=== PATIENT | male | born 1990 | race African-American/Black ===

== ENCOUNTER 2020-12-09 13:48 | Emergency (ER) | payer MEDICAID ==
[~2020-12-09] VITALS: Ht 182.9 cm; Wt 82.0 kg
[2020-12-09 14:05] VITALS: BP 128/83
[2020-12-09] MEDS ORDERED: TETANUS, DIPHTHERIA, PERTUSSIS VAC/PF 0.5ML (>10YR OLD) IM ONE (15:30)
[2020-12-09] MEDS ORDERED: ACETAMINOPHEN 325MG TABLET PO ONE (15:30)
[2020-12-09] MEDS ORDERED: IBUPROFEN 600MG TABLET PO ONE (15:30)
[2020-12-09] MEDS ORDERED: TOPUD MT (16:26)
[2020-12-09] MEDS ORDERED: AMOX-424 MT (16:26)
[2020-12-09] MEDS ORDERED: NAPR-1176 MT (16:26)
[2020-12-09] MEDS ORDERED: AMOXICILLIN/POTASSIUM CLAVULANATE 875/125MG TAB PO ONE (16:30)
== END 2020-12-09 17:20 | disposition home or self-care (01) ==
LOC: ER 13:48
DX: S60.121A Contusion of right index finger with damage to nail, initial encounter (principal); Y04.1XXA Assault by human bite, initial encounter; Y93.89 Activity, other specified; Y92.89 Other specified places as the place of occurrence of the external cause
CPT/HCPCS: 11740; 73140; 90471; 90715; 99284